=== PATIENT | male | born 2000 | race African-American/Black ===

== ENCOUNTER 2018-04-07 00:04 | Emergency (ER) | payer OTHER, SELFPAY ==
[2018-04-07 00:51] LABS: #Basophils 0.1 thou/uL (0.0-0.2); #Eosinphils 0.1 thou/uL (0.0-0.7); #Lymphocytes 2.9 thou/uL (1.20-3.40); #Monocytes 0.6 thou/uL (0.11-0.59); #Neutrophils 4.3 thou/uL (1.40-6.50); %Eosinophils 0.7 % (0.0-10.0); %Monocytes 7.5 % (0.0-4.0); %Neutrophils 53.8 % (31.0-61.0); Hemoglobin 13.1 g/dL (14.0-18.0); Mean Corpuscular HGB CONC 32.6 g/dL (32.0-36.0); Mean Corpuscular Hemoglobin 29.9 pg (25.0-35.0); Mean Corpuscular Volume 91.5 fl (77.0-87.0); Mean Platelet Volume 6.7 fL (7.4-10.4); Platelet Count 172 thou/uL (130-400); RBC Distribution Width 12.2 % (11.5-14.5); Red Blood Cell (RBC) Count 4.39 mill/uL (4.00-5.20); White Blood Cell (WBC) Count 7.9 thou/uL (4.8-10.8)
[2018-04-07 01:18] LABS: CKMB 1.1 ng/mL (0-6.6); Troponin I Less than 0.010 ng/mL (< 0.028)
[2018-04-07 02:20] LABS: ALT (SGPT) 19 U/L (8-55); AST (SGOT) 22 U/L (10-45); Albumin 4.4 g/dL (3.5-5.0); Alkaline Phosphatase 104 U/L (Less than 750); Anion Gap 10 mmol/L (10-20); BUN (Urea Nitrogen) 13 mg/dL (8.4-21.0); Bilirubin, Total 0.4 mg/dL (0.2-1.2); Calc. Creatinine Clearance 0 mL/min (70-130); Calcium 9.3 mg/dL (7.8-10.44); Carbon Dioxide 29 mmol/L (22-29); Chloride 105 mmol/L (98-107); Estimated GFR-MDRD Greater than 90; Globulin 3.3 g/dL (2.4-3.5); Glucose 81 mg/dL (70-105); Potassium 3.8 mmol/L (3.5-5.1); Protein, Total 7.7 g/dL (6.0-8.3); Sodium 140 mmol/L (136-145)
[2018-04-07] MEDS ORDERED: Acetaminophen 500 MG TAB ONE (04:21)
--- NOTE | 2018-04-07 08:07 | RAD ---
CHEST 2 VIEWS: Date: 04/07/18 HISTORY: Chest pain. COMPARISON: None. FINDINGS: Normal cardiac silhouette. Lungs and pleural spaces are clear. No pneumothorax or osseous abnormaliti es. IMPRESSION: No acute cardiopulmonary process. POS: OFF
== END 2018-04-07 04:26 | disposition home or self-care (01) ==
LOC: ERS 00:04
DX: R07.89 Other chest pain (principal); F32.9 Major depressive disorder, single episode, unspecified; F17.200 Nicotine dependence, unspecified, uncomplicated
CPT/HCPCS: 36415; 71046; 80053; 82553; 84484; 85025; 93005

== ENCOUNTER 2018-10-14 14:21 | Emergency (ER) | payer SELFPAY ==
[2018-10-14 16:12] LABS: Bilirubin Negative (Negative); Blood, Urine Negative (Negative); Clarity TURBID (Clear); Glucose, Urine (Dipstick) Negative (Negative); Leukocyte Large (Negative); Nitrite Negative (Negative); Protein, Urine (Dipstick) Negative (Neg-Trace); Specific Gravity, Urine 1.027 (1.002-1.036)
[2018-10-14 16:18] LABS: Bacteria/HPF None Seen HPF (None Seen); Hyaline Casts/LPF 0-3 HYALINE CAST LPF (0-3 Hyaline); Pathc Cast-AUWi Flag 0.43 (0-2.49)
[2018-10-14] MEDS ORDERED: Azithromycin 250 MG TAB ONE (16:29)
[2018-10-14] MEDS ORDERED: cefTRIAXone\\ROCEPHIN 250 MG VIAL ONE (16:29)
[2018-10-15 23:02] LABS: Chlamydia by PCR DETECTED (NotDetected); GC by PCR Not Detected (NotDetected)
== END 2018-10-14 16:36 | disposition home or self-care (01) ==
LOC: ERS 14:21
DX: L02.31 Cutaneous abscess of buttock (principal); F32.9 Major depressive disorder, single episode, unspecified; F17.200 Nicotine dependence, unspecified, uncomplicated; Z71.6 Tobacco abuse counseling
CPT/HCPCS: 10061; 81003; 81015; 87086; 87491; 87591; 96372; 99406; J0696

== ENCOUNTER 2018-10-16 17:04 | Emergency (ER) | payer SELFPAY | END 2018-10-16 18:00 | disposition home or self-care (01) | LOC: ERS 17:04 | DX: Z48.817 Encounter for surgical aftercare following surgery on the skin and subcutaneous tissue (principal); Z48.01 Encounter for change or removal of surgical wound dressing; F32.9 Major depressive disorder, single episode, unspecified; F17.200 Nicotine dependence, unspecified, uncomplicated | CPT/HCPCS: 99282 ==

== ENCOUNTER 2019-07-01 12:42 | Emergency (ER) | payer SELFPAY ==
[2019-07-01 13:49] LABS: Bilirubin Negative (Negative); Blood, Urine Negative (Negative); Clarity Turbid (Clear); Glucose, Urine (Dipstick) Normal (Negative); Leukocyte 500 Leu/uL (Negative); Nitrite Negative (Negative); Protein, Urine (Dipstick) 10 mg/dL (Neg-Trace); Squamous Epithelial 0-3 HPF (0-3); Urobilinogen Normal mg/dL (Less than 2); WBC/HPF Greater than 50 HPF (0-3)
[2019-07-01] MEDS ORDERED: cefTRIAXone\\ROCEPHIN 250 MG VIAL ONE (13:51)
[2019-07-01] MEDS ORDERED: Lidocaine 1% PF 5 ML VIAL ONE (13:51)
[2019-07-01] MEDS ORDERED: Azithromycin 250 MG TAB ONE (13:51)
[2019-07-01 14:03] LABS: Bacteria/HPF 2+ HPF (None Seen)
[2019-07-04 23:02] LABS: Chlam.trachomatis by PCR,Urine Not Detected (NotDetected)
== END 2019-07-01 14:20 | disposition home or self-care (01) ==
LOC: ERS 12:42
DX: N39.0 Urinary tract infection, site not specified (principal); Z20.2 Contact with and (suspected) exposure to infections with a predominantly sexual mode of transmission; F32.9 Major depressive disorder, single episode, unspecified
CPT/HCPCS: 81003; 81015; 87491; 87591; 96372; 99284; J0696; J2001

== ENCOUNTER 2019-07-08 20:04 | Emergency (ER) | payer SELFPAY ==
--- NOTE | 2019-07-08 20:20 | RAD ---
XR Chest Pa Lat STANDARD History: Cough Comparison: Radiograph March 2018 Findings: Lungs are clear. No pneumothorax. No effusion. Cardiac silhouette and mediastinal contours are within normal limits. Impression: No acute intrathoracic abnormality.
== END 2019-07-08 20:32 | disposition home or self-care (01) ==
LOC: ERS 20:04
DX: R05 Cough (principal); F12.90 Cannabis use, unspecified, uncomplicated; F32.9 Major depressive disorder, single episode, unspecified; F17.290 Nicotine dependence, other tobacco product, uncomplicated; Z79.2 Long term (current) use of antibiotics
CPT/HCPCS: 71046; 93005

== ENCOUNTER 2019-12-23 18:40 | Emergency (ER) | payer SELFPAY ==
[2019-12-23 21:30] LABS: Bilirubin Negative (Negative); Blood, Urine Negative (Negative); Clarity Clear (Clear); Glucose, Urine (Dipstick) Normal (Negative); Leukocyte 250 Leu/uL (Negative); Mucous/LPF Rare LPF (<2+); Nitrite Negative (Negative); Protein, Urine (Dipstick) Negative (Neg-Trace); Squamous Epithelial 0-3 HPF (0-3); Urobilinogen Normal mg/dL (Less than 2); WBC/HPF 21-50 HPF (0-3)
[2019-12-23 21:35] LABS: Bacteria/HPF Rare-Few HPF (None Seen); RBC/HPF 0-3 HPF (0-3)
[2019-12-23] MEDS ORDERED: Lidocaine 1% w/Epinephrine 1:100K 20 ML VIAL ONE (21:47)
[2019-12-23] MEDS ORDERED: cefTRIAXone\\ROCEPHIN 250 MG VIAL ONE (22:07)
[2019-12-23] MEDS ORDERED: Azithromycin 250 MG TAB ONE (22:07)
[2019-12-23] MEDS ORDERED: Lidocaine 1% PF 5 ML VIAL ONE (22:09)
[2019-12-25 19:31] LABS: Chlam.trachomatis by PCR,Urine Not Detected (NotDetected)
== END 2019-12-23 22:26 | disposition home or self-care (01) ==
LOC: ERS 18:40
DX: N34.2 Other urethritis (principal); L02.31 Cutaneous abscess of buttock; F41.9 Anxiety disorder, unspecified; F32.9 Major depressive disorder, single episode, unspecified; Z87.891 Personal history of nicotine dependence
CPT/HCPCS: 81003; 81015; 87491; 87591; 96372; 99283; J0696; J2001